=== PATIENT | male | born 1960 | race Caucasian/White ===

== ENCOUNTER → 2018-05-20 | Outpatient (CLI) | payer BC ==
[~2018-05-20] MED LIST: CONTRAST GIVEN. MC PRN; IOHEXOL 240 MG/ML 50ML VIAL. PO ONE; IOHEXOL 300 MG/ML 100ML VIAL. IV ONE
--- NOTE | 2018-05-20 13:27 | RAD ---
PQRS Compliance statement: One or more of the following individualized dose reduction techniques were utilized for this examination: 1. Automated exposure control. 2. Adjustment of the mA and/or kV according to patient size. 3. Use of iterative reconstruction technique. Indication:LOWER ABD PAIN H/O DIVERTICULITIS INJ 75ML OMNI 300 NO PREV TECHNIQUE: CT abdomen and pelvis with IV contrast with multiplanar reformats. COMPARISON: None FINDINGS: Heart is normal in size. No pericardial or pleural effusion. Clear lung bases. Diffuse hepatic steatosis. Spleen, gallbladder, pancreas, adrenals and kidneys are within normal limits. No enlarged retroperitoneal or pelvic adenopathy. No free pelvic fluid or ascites. Sigmoid diverticulosis. Short segment wall thickening of the sigmoid colon with chronic inflammatory changes. No bowel obstruction. Normal appendix. The prostate and seminal vesicles show no large mass. Urinary bladder is decompressed however shows no radiopaque stones. No pneumoperitoneum. No suspicious bony lesion. IMPRESSION: 1. Acute sigmoid diverticulitis. 2. Hepatic steatosis. Electronically signed by: Uriah Pineda DO (05/20/2018 1:24 PM) [id number]
== END | disposition home or self-care (01) ==
LOC: CT 06:57
DX: K57.32 Diverticulitis of large intestine without perforation or abscess without bleeding (principal); K76.0 Fatty (change of) liver, not elsewhere classified
CPT/HCPCS: 74177; Q9966; Q9967